=== PATIENT | male | born 1935 ===

== ENCOUNTER 2022-10-31 16:15 | Inpatient (IN) | payer MEDICARE, OTHER ==
[~2022-10-31] VITALS: Ht 157.5 cm; Wt 61.7 kg
[2022-10-31] MEDS ORDERED: INFLUENZA VIRUS VACCINE QVS 2022-23 (6MO+)/PF 60 MCG/0.5 ML SYRINGE IM. ONE (17:30)
[2022-10-31] MEDS ORDERED: DEXTROSE 50%-WATER 25 GM/50 ML SYRINGE IVP PRN (18:15)
[2022-10-31] MEDS ORDERED: INSULIN LISPRO 100 UNITS/ML SQ PRN (18:15)
[2022-10-31 18:38] VITALS: BP 102/62
[2022-10-31] MEDS ORDERED: ONDANSETRON HCL 4 MG TABLET PO PRN (19:00)
[2022-10-31 20:00] VITALS: BP 107/68
[2022-10-31] MEDS ORDERED: DOCUSATE SODIUM 100 MG/10 ML LIQUID UDCUP PO SCH (21:00)
[2022-10-31] MEDS ORDERED: SENNOSIDES 8.6 MG TABLET PO SCH (21:00)
[2022-10-31] MEDS: MELATONIN 5 MG TABLET PO PRN (21:23)
[2022-10-31] MEDS: ATORVASTATIN CALCIUM 40 MG TABLET PO SCH (21:24)
[2022-10-31] MEDS: DOCUSATE SODIUM 250 MG CAPSULE PO SCH (21:24)
[2022-10-31] MEDS: SENNOSIDES 8.6 MG TABLET PO SCH (21:24)
[2022-10-31] MEDS: ETHYL ALCOHOL 62% ANTISEPTIC NASAL SANITIZER 0.6 ML AMPUL NASAL SCH (21:24)
[2022-10-31 22:41] LABS: GLUCOMETER DEV NAME(LOC) 2WR.1C; GLUCOSE,POINT OF CARE 142 MG/DL (70-110)
[2022-11-01 06:56] LABS: GLUCOMETER DEV NAME(LOC) 2WR.2B; GLUCOSE,POINT OF CARE 115 MG/DL (70-110)
[2022-11-01] MEDS: ENOXAPARIN SODIUM 40 MG/0.4 ML PF SYRINGE SQ SCH (08:16)
[2022-11-01] MEDS: ETHYL ALCOHOL 62% ANTISEPTIC NASAL SANITIZER 0.6 ML AMPUL NASAL SCH ×2 (08:17→21:16)
[2022-11-01] MEDS: MetFORMIN HCL 850 MG TABLET PO SCH ×2 (08:17→15:52)
[2022-11-01] MEDS: ASPIRIN 81 MG CHEWABLE TABLET PO SCH (08:17)
[2022-11-01] MEDS: THIAMINE 100 MG TABLET PO SCH (08:18)
[2022-11-01] MEDS: DOCUSATE SODIUM 250 MG CAPSULE PO SCH ×2 (08:18→21:00)
[2022-11-01 09:05] VITALS: BP 110/67
[2022-11-01 09:48] LABS: BASOPHILS % (AUTO) 0.9 % (0.0-2.0); EOSINOPHILS % (AUTO) 2.6 % (1.0-6.0); HEMATOCRIT 52.1 % (41-53); HEMOGLOBIN 17.6 g/dL (13.5-17.5); LYMPHOCYTES # (AUTO) 3.1 K/uL (1.0-4.8); MEAN CORPUSCULAR HEMOGLOBIN 32.6 pg (26.0-34.0); MEAN CORPUSCULAR HGB CONC 33.7 G/dL (31.0-37.0); MEAN CORPUSCULAR VOLUME 97 fL (80-100); MONOCYTES # (AUTO) 0.7 K/uL (0.1-1.0); MONOCYTES % (AUTO) 5.8 % (2.0-9.0); NEUTROPHILS # (AUTO) 7.4 K/uL (1.8-7.7); NEUTROPHILS % (AUTO) 63.7 % (40.0-70.0); PLATELET COUNT (AUTO) 282 K/uL (150-450); RED BLOOD CELL COUNT(AUTO) 5.39 MIL/uL (4.50-5.90); RED CELL DISTRIBUTION WIDTH 14.2 % (11.5-14.5)
[2022-11-01 10:11] LABS: ALANINE AMINOTRANSFERASE 36 U/L (12-78); ALBUMIN 3.6 g/dL (3.4-5.0); ALKALINE PHOSPHATASE 78 U/L (46-116); ANION GAP 8 mmol/L (8-16); ASPARTATE AMINOTRANSFERASE 42 U/L (15-37); BILIRUBIN,TOTAL 0.8 mg/dL (0.1-1.0); CALCIUM, TOTAL 8.6 mg/dL (8.8-10.5); CARBON DIOXIDE 27 mmol/L (22-29); CHLORIDE 104 mmol/L (98-107); CREATININE 1.12 mg/dL (0.60-1.30); GLOMERULAR FILTR. RATE CALC > 60 mL/min (>60); GLUCOSE,RANDOM 226 mg/dL (70-110); POTASSIUM 4.5 mmol/L (3.5-5.1); SODIUM SERUM 139 mmol/L (136-145); TOTAL PROTEIN, SERUM 7.3 g/dL (6.4-8.2); UREA NITROGEN, BLOOD 15 mg/dL (7-18)
[2022-11-01 11:46] LABS: GLUCOMETER DEV NAME(LOC) 2WR.1C; GLUCOSE,POINT OF CARE 109 MG/DL (70-110)
[2022-11-01] MEDS: ACETAMINOPHEN 325 MG TABLET PO PRN (13:09)
[2022-11-01 17:16] LABS: GLUCOMETER DEV NAME(LOC) 2WR.1C; GLUCOSE,POINT OF CARE 103 MG/DL (70-110)
[2022-11-01 21:00] VITALS: BP 98/61
[2022-11-01] MEDS: SENNOSIDES 8.6 MG TABLET PO SCH (21:00)
[2022-11-01] MEDS: ATORVASTATIN CALCIUM 40 MG TABLET PO SCH (21:16)
[2022-11-01] MEDS: MELATONIN 5 MG TABLET PO PRN (21:17)
[2022-11-01 22:21] LABS: GLUCOMETER DEV NAME(LOC) 2WR.2B; GLUCOSE,POINT OF CARE 113 MG/DL (70-110)
[2022-11-02] MEDS: LEVOTHYROXINE SODIUM 25 MCG TABLET PO SCH (06:42)
[2022-11-02 07:01] LABS: GLUCOMETER DEV NAME(LOC) 2WR.2B; GLUCOSE,POINT OF CARE 116 MG/DL (70-110)
[2022-11-02] MEDS: ETHYL ALCOHOL 62% ANTISEPTIC NASAL SANITIZER 0.6 ML AMPUL NASAL SCH ×2 (07:54→21:36)
[2022-11-02] MEDS: THIAMINE 100 MG TABLET PO SCH (07:54)
[2022-11-02] MEDS: ENOXAPARIN SODIUM 40 MG/0.4 ML PF SYRINGE SQ SCH (07:54)
[2022-11-02] MEDS: ASPIRIN 81 MG CHEWABLE TABLET PO SCH (07:54)
[2022-11-02] MEDS: MetFORMIN HCL 850 MG TABLET PO SCH ×2 (07:54→16:12)
[2022-11-02] MEDS: DOCUSATE SODIUM 250 MG CAPSULE PO SCH ×2 (07:55→21:00)
[2022-11-02 08:05] VITALS: BP 123/72
[2022-11-02 11:36] LABS: GLUCOMETER DEV NAME(LOC) 2WR.2B; GLUCOSE,POINT OF CARE 101 MG/DL (70-110)
[2022-11-02 18:11] LABS: GLUCOMETER DEV NAME(LOC) 2WR.1C; GLUCOSE,POINT OF CARE 137 MG/DL (70-110)
[2022-11-02 20:00] VITALS: BP 110/70
[2022-11-02] MEDS: SENNOSIDES 8.6 MG TABLET PO SCH (21:00)
[2022-11-02] MEDS: ATORVASTATIN CALCIUM 40 MG TABLET PO SCH (21:34)
[2022-11-02] MEDS: MELATONIN 5 MG TABLET PO PRN (21:34)
[2022-11-02 21:46] LABS: GLUCOMETER DEV NAME(LOC) 2WR.2B; GLUCOSE,POINT OF CARE 130 MG/DL (70-110)
[2022-11-03] MEDS: LEVOTHYROXINE SODIUM 25 MCG TABLET PO SCH (06:46)
[2022-11-03 08:01] VITALS: BP 101/68
[2022-11-03] MEDS: ETHYL ALCOHOL 62% ANTISEPTIC NASAL SANITIZER 0.6 ML AMPUL NASAL SCH ×2 (08:24→21:16)
[2022-11-03] MEDS: MetFORMIN HCL 850 MG TABLET PO SCH ×2 (08:24→17:39)
[2022-11-03] MEDS: ENOXAPARIN SODIUM 40 MG/0.4 ML PF SYRINGE SQ SCH (08:25)
[2022-11-03] MEDS: ASPIRIN 81 MG CHEWABLE TABLET PO SCH (08:25)
[2022-11-03] MEDS: DOCUSATE SODIUM 250 MG CAPSULE PO SCH ×2 (08:25→21:00)
[2022-11-03] MEDS: THIAMINE 100 MG TABLET PO SCH (08:25)
[2022-11-03 08:36] LABS: GLUCOMETER DEV NAME(LOC) 2WR.1C; GLUCOSE,POINT OF CARE 113 MG/DL (70-110)
[2022-11-03] MEDS: ACETAMINOPHEN 325 MG TABLET PO PRN (14:16)
[2022-11-03 17:51] LABS: GLUCOMETER DEV NAME(LOC) 2WR.1C; GLUCOSE,POINT OF CARE 126 MG/DL (70-110)
[2022-11-03 17:51] LABS: GLUCOMETER DEV NAME(LOC) 2WR.1C; GLUCOSE,POINT OF CARE 117 MG/DL (70-110)
[2022-11-03 21:00] VITALS: BP 121/76
[2022-11-03] MEDS: SENNOSIDES 8.6 MG TABLET PO SCH (21:00)
[2022-11-03] MEDS: MELATONIN 5 MG TABLET PO PRN (21:16)
[2022-11-03] MEDS: ATORVASTATIN CALCIUM 40 MG TABLET PO SCH (21:16)
[2022-11-04 05:26] LABS: GLUCOMETER DEV NAME(LOC) 2WR.1C; GLUCOSE,POINT OF CARE 104 MG/DL (70-110)
[2022-11-04] MEDS: LEVOTHYROXINE SODIUM 25 MCG TABLET PO SCH (06:25)
[2022-11-04 07:16] LABS: GLUCOMETER DEV NAME(LOC) 2WR.2B; GLUCOSE,POINT OF CARE 121 MG/DL (70-110)
[2022-11-04] MEDS: THIAMINE 100 MG TABLET PO SCH (08:25)
[2022-11-04] MEDS: MetFORMIN HCL 850 MG TABLET PO SCH ×2 (08:25→17:45)
[2022-11-04] MEDS: ENOXAPARIN SODIUM 40 MG/0.4 ML PF SYRINGE SQ SCH (08:25)
[2022-11-04] MEDS: ASPIRIN 81 MG CHEWABLE TABLET PO SCH (08:25)
[2022-11-04] MEDS: DOCUSATE SODIUM 250 MG CAPSULE PO SCH ×2 (08:26→22:09)
[2022-11-04 09:02] VITALS: BP 119/59
[2022-11-04] MEDS: ETHYL ALCOHOL 62% ANTISEPTIC NASAL SANITIZER 0.6 ML AMPUL NASAL SCH ×2 (10:08→22:09)
[2022-11-04 13:16] LABS: GLUCOMETER DEV NAME(LOC) 2WR.2B; GLUCOSE,POINT OF CARE 83 MG/DL (70-110)
[2022-11-04] MEDS: ACETAMINOPHEN 325 MG TABLET PO PRN (13:48)
[2022-11-04 18:35] LABS: GLUCOMETER DEV NAME(LOC) 2WR.2B; GLUCOSE,POINT OF CARE 103 MG/DL (70-110)
[2022-11-04 20:00] VITALS: BP 95/50
[2022-11-04] MEDS: SENNOSIDES 8.6 MG TABLET PO SCH (21:00)
[2022-11-04 21:26] LABS: GLUCOMETER DEV NAME(LOC) 2WR.2B; GLUCOSE,POINT OF CARE 99 MG/DL (70-110)
[2022-11-04] MEDS: ATORVASTATIN CALCIUM 40 MG TABLET PO SCH (22:09)
[2022-11-04 23:00] VITALS: BP 97/50
[2022-11-05 03:35] VITALS: BP 113/68
[2022-11-05] MEDS: LEVOTHYROXINE SODIUM 25 MCG TABLET PO SCH (06:54)
[2022-11-05 08:00] VITALS: BP 102/68
[2022-11-05] MEDS: THIAMINE 100 MG TABLET PO SCH (08:03)
[2022-11-05] MEDS: ENOXAPARIN SODIUM 40 MG/0.4 ML PF SYRINGE SQ SCH (08:03)
[2022-11-05] MEDS: DOCUSATE SODIUM 250 MG CAPSULE PO SCH ×2 (08:03→21:39)
[2022-11-05] MEDS: ETHYL ALCOHOL 62% ANTISEPTIC NASAL SANITIZER 0.6 ML AMPUL NASAL SCH ×2 (08:04→21:38)
[2022-11-05] MEDS: ASPIRIN 81 MG CHEWABLE TABLET PO SCH (08:04)
[2022-11-05] MEDS: MetFORMIN HCL 850 MG TABLET PO SCH ×2 (08:04→16:21)
[2022-11-05 20:00] VITALS: BP 92/70
[2022-11-05 20:46] LABS: GLUCOMETER DEV NAME(LOC) 2WR.1C; GLUCOSE,POINT OF CARE 113 MG/DL (70-110)
[2022-11-05] MEDS: SENNOSIDES 8.6 MG TABLET PO SCH (21:00)
[2022-11-05] MEDS: ATORVASTATIN CALCIUM 40 MG TABLET PO SCH (21:39)
[2022-11-06] MEDS: LEVOTHYROXINE SODIUM 25 MCG TABLET PO SCH (06:26)
[2022-11-06 06:41] LABS: GLUCOMETER DEV NAME(LOC) 2WR.1C; GLUCOSE,POINT OF CARE 99 MG/DL (70-110)
[2022-11-06] MEDS ORDERED: ATOR40TA28 PO (07:34)
[2022-11-06] MEDS ORDERED: ASPI-1450 PO (07:34)
[2022-11-06] MEDS ORDERED: LEVO25TA9 PO (07:34)
[2022-11-06] MEDS ORDERED: THIA100T80 PO (07:34)
[2022-11-06] MEDS ORDERED: DOCU-350 PO (07:34)
[2022-11-06] MEDS ORDERED: METF-1185 PO (07:34)
[2022-11-06] MEDS: ETHYL ALCOHOL 62% ANTISEPTIC NASAL SANITIZER 0.6 ML AMPUL NASAL SCH ×2 (07:57→20:09)
[2022-11-06] MEDS: ENOXAPARIN SODIUM 40 MG/0.4 ML PF SYRINGE SQ SCH (07:57)
[2022-11-06] MEDS: ASPIRIN 81 MG CHEWABLE TABLET PO SCH (08:02)
[2022-11-06] MEDS: DOCUSATE SODIUM 250 MG CAPSULE PO SCH ×2 (08:02→20:09)
[2022-11-06] MEDS: THIAMINE 100 MG TABLET PO SCH (08:02)
[2022-11-06] MEDS: MetFORMIN HCL 850 MG TABLET PO SCH ×2 (08:02→16:01)
[2022-11-06 09:00] VITALS: BP 98/65
[2022-11-06 20:01] VITALS: BP 83/53
[2022-11-06] MEDS: ATORVASTATIN CALCIUM 40 MG TABLET PO SCH (20:09)
[2022-11-06] MEDS: SENNOSIDES 8.6 MG TABLET PO SCH (20:09)
[2022-11-06 22:56] VITALS: BP 97/61
[2022-11-07] MEDS: LEVOTHYROXINE SODIUM 25 MCG TABLET PO SCH (06:24)
[2022-11-07 07:16] LABS: GLUCOMETER DEV NAME(LOC) 2WR.2B; GLUCOSE,POINT OF CARE 108 MG/DL (70-110)
[2022-11-07 08:15] VITALS: BP 110/66
[2022-11-07] MEDS: ETHYL ALCOHOL 62% ANTISEPTIC NASAL SANITIZER 0.6 ML AMPUL NASAL SCH ×2 (08:34→20:33)
[2022-11-07] MEDS: MetFORMIN HCL 850 MG TABLET PO SCH ×2 (08:34→16:36)
[2022-11-07] MEDS: ENOXAPARIN SODIUM 40 MG/0.4 ML PF SYRINGE SQ SCH (08:35)
[2022-11-07] MEDS: ASPIRIN 81 MG CHEWABLE TABLET PO SCH (08:35)
[2022-11-07] MEDS: THIAMINE 100 MG TABLET PO SCH (08:35)
[2022-11-07] MEDS: DOCUSATE SODIUM 250 MG CAPSULE PO SCH ×2 (08:35→20:33)
[2022-11-07] MEDS: ATORVASTATIN CALCIUM 40 MG TABLET PO SCH (20:33)
[2022-11-07] MEDS: SENNOSIDES 8.6 MG TABLET PO SCH (20:33)
[2022-11-07 21:00] VITALS: BP 107/66
[2022-11-08] MEDS: LEVOTHYROXINE SODIUM 25 MCG TABLET PO SCH (06:32)
[2022-11-08 07:51] LABS: GLUCOMETER DEV NAME(LOC) 2WR.1C; GLUCOSE,POINT OF CARE 104 MG/DL (70-110)
[2022-11-08] MEDS: ASPIRIN 81 MG CHEWABLE TABLET PO SCH (08:21)
[2022-11-08] MEDS: ETHYL ALCOHOL 62% ANTISEPTIC NASAL SANITIZER 0.6 ML AMPUL NASAL SCH ×2 (08:21→20:28)
[2022-11-08] MEDS: ENOXAPARIN SODIUM 40 MG/0.4 ML PF SYRINGE SQ SCH (08:22)
[2022-11-08] MEDS: THIAMINE 100 MG TABLET PO SCH (08:22)
[2022-11-08] MEDS: MetFORMIN HCL 850 MG TABLET PO SCH ×2 (08:22→17:58)
[2022-11-08] MEDS: DOCUSATE SODIUM 250 MG CAPSULE PO SCH ×3 (08:23→20:32)
[2022-11-08 09:05] VITALS: BP 98/60
[2022-11-08 11:00] VITALS: BP 118/64
[2022-11-08 19:37] VITALS: BP 97/58
[2022-11-08] MEDS: SENNOSIDES 8.6 MG TABLET PO SCH ×2 (20:28→20:31)
[2022-11-08] MEDS: ATORVASTATIN CALCIUM 40 MG TABLET PO SCH (20:28)
[2022-11-09] MEDS: LEVOTHYROXINE SODIUM 25 MCG TABLET PO SCH (06:15)
[2022-11-09 06:56] LABS: GLUCOMETER DEV NAME(LOC) 2WR.1C; GLUCOSE,POINT OF CARE 110 MG/DL (70-110)
[2022-11-09] MEDS: MULTIVITAMINS WITH MINERALS, THERAPEUTIC TABLET PO SCH (08:44)
[2022-11-09] MEDS: ASPIRIN 81 MG CHEWABLE TABLET PO SCH (08:44)
[2022-11-09] MEDS: THIAMINE 100 MG TABLET PO SCH (08:44)
[2022-11-09] MEDS: ETHYL ALCOHOL 62% ANTISEPTIC NASAL SANITIZER 0.6 ML AMPUL NASAL SCH ×2 (08:44→21:35)
[2022-11-09] MEDS: MetFORMIN HCL 850 MG TABLET PO SCH ×2 (08:44→17:18)
[2022-11-09] MEDS: ENOXAPARIN SODIUM 40 MG/0.4 ML PF SYRINGE SQ SCH (08:44)
[2022-11-09] MEDS: DOCUSATE SODIUM 250 MG CAPSULE PO SCH ×2 (08:45→21:34)
[2022-11-09 09:25] VITALS: BP 118/70
[2022-11-09 21:00] VITALS: BP 109/58
[2022-11-09] MEDS: SENNOSIDES 8.6 MG TABLET PO SCH (21:34)
[2022-11-09] MEDS: ATORVASTATIN CALCIUM 40 MG TABLET PO SCH (21:35)
[2022-11-10] MEDS: LEVOTHYROXINE SODIUM 25 MCG TABLET PO SCH (06:27)
[2022-11-10 06:36] LABS: GLUCOMETER DEV NAME(LOC) 2WR.1C; GLUCOSE,POINT OF CARE 111 MG/DL (70-110)
[2022-11-10 07:50] VITALS: BP 100/62
[2022-11-10] MEDS: MULTIVITAMINS WITH MINERALS, THERAPEUTIC TABLET PO SCH (08:06)
[2022-11-10] MEDS: ENOXAPARIN SODIUM 40 MG/0.4 ML PF SYRINGE SQ SCH (08:06)
[2022-11-10] MEDS: ETHYL ALCOHOL 62% ANTISEPTIC NASAL SANITIZER 0.6 ML AMPUL NASAL SCH ×2 (08:06→21:22)
[2022-11-10] MEDS: MetFORMIN HCL 850 MG TABLET PO SCH ×2 (08:06→16:11)
[2022-11-10] MEDS: DOCUSATE SODIUM 250 MG CAPSULE PO SCH ×2 (08:06→21:00)
[2022-11-10] MEDS: THIAMINE 100 MG TABLET PO SCH (08:07)
[2022-11-10] MEDS: ASPIRIN 81 MG CHEWABLE TABLET PO SCH (08:07)
[2022-11-10 21:00] VITALS: BP 107/71
[2022-11-10] MEDS: SENNOSIDES 8.6 MG TABLET PO SCH (21:00)
[2022-11-10] MEDS: ATORVASTATIN CALCIUM 40 MG TABLET PO SCH (21:23)
[2022-11-10] MEDS ORDERED: MULT-248 PO (23:28)
[2022-11-11] MEDS: LEVOTHYROXINE SODIUM 25 MCG TABLET PO SCH (06:33)
[2022-11-11 07:11] LABS: GLUCOMETER DEV NAME(LOC) 2WR.2B; GLUCOSE,POINT OF CARE 108 MG/DL (70-110)
[2022-11-11 08:22] VITALS: BP 99/60
[2022-11-11] MEDS: MULTIVITAMINS WITH MINERALS, THERAPEUTIC TABLET PO SCH (08:56)
[2022-11-11] MEDS: DOCUSATE SODIUM 250 MG CAPSULE PO SCH (08:56)
[2022-11-11] MEDS: MetFORMIN HCL 850 MG TABLET PO SCH (08:56)
[2022-11-11] MEDS: ASPIRIN 81 MG CHEWABLE TABLET PO SCH (08:56)
[2022-11-11] MEDS: THIAMINE 100 MG TABLET PO SCH (08:57)
[2022-11-11] MEDS: ENOXAPARIN SODIUM 40 MG/0.4 ML PF SYRINGE SQ SCH (08:57)
[2022-11-11] MEDS ORDERED: LEVO25TA9 PO (10:03)
[2022-11-11] MEDS ORDERED: THIA100T80 PO (10:03)
[2022-11-11] MEDS ORDERED: ATOR40TA71 PO (10:03)
[2022-11-11] MEDS ORDERED: MULT-1239 PO (10:03)
[2022-11-11] MEDS ORDERED: METF-1185 PO (10:03)
[2022-11-11] MEDS ORDERED: ASPI81 PO (10:03)
[2022-11-11] MEDS ORDERED: DOCU-350 PO (10:03)
[2022-11-11] MEDS: ETHYL ALCOHOL 62% ANTISEPTIC NASAL SANITIZER 0.6 ML AMPUL NASAL SCH (11:10)
[2022-11-11 12:46] VITALS: BP 99/60
== END 2022-11-11 17:30 | disposition designated cancer center or children's hospital (05) | DRG 56 ==
LOC: 2WR 16:15
PROVIDERS: ADMIT Physical Medicine & Rehabilitation; ATTEND Physical Medicine & Rehabilitation
DX: I69.351 Hemiplegia and hemiparesis following cerebral infarction affecting right dominant side (principal); I63.9 Cerebral infarction, unspecified; I69.354 Hemiplegia and hemiparesis following cerebral infarction affecting left non-dominant side; R41.89 Other symptoms and signs involving cognitive functions and awareness; R47.1 Dysarthria and anarthria; I70.8 Atherosclerosis of other arteries; E11.9 Type 2 diabetes mellitus without complications; D75.1 Secondary polycythemia; E03.9 Hypothyroidism, unspecified; F10.10 Alcohol abuse, uncomplicated; Y90.9 Presence of alcohol in blood, level not specified; R32 Unspecified urinary incontinence; R11.2 Nausea with vomiting, unspecified; R15.9 Full incontinence of feces; R42 Dizziness and giddiness; R13.13 Dysphagia, pharyngeal phase; Z79.82 Long term (current) use of aspirin; Z79.01 Long term (current) use of anticoagulants; Z23 Encounter for immunization
CPT/HCPCS: 80053; 82962; 85025; 87081; 90686; 92507; 92526; 93970; 97110; 97112; 97116; 97150; 97163; 97166; 97530; 97535; 99366; J1650; Q9967